=== PATIENT | male | born 1975 | race Caucasian/White ===

== ENCOUNTER 2024-12-26 16:51 | Observation (INO) ==
[2024-12-26] MEDS ORDERED: IOPAMIDOL 100 ML BOTTLE IV ONE (16:52)
[2024-12-26 17:30] LABS: Basophils # (Auto) 0.02 K/mcL (0.00-0.30); Basophils % (Auto) 0.3 % (0.0-2.0); Eosinophils % (Auto) 2.8 % (0.0-7.0); Hematocrit 42.6 % (40.1-51.0); Hemoglobin 14.8 g/dL (13.7-17.5); Lymphocytes # (Auto) 2.21 K/mcL (1.50-4.80); Lymphocytes % (Auto) 31.3 % (15.5-49.0); Mean Corpuscular HGB Conc 34.7 g/dL (31.0-36.0); Mean Platelet Volume 8.8 fL (8.8-12.5); Monocytes # (Auto) 0.41 K/mcL (0.10-0.90); Monocytes % (Auto) 5.8 % (1.0-12.0); Neutrophils % (Auto) 59.7 % (38.0-78.0); Platelet Count 210 K/mcL (140-440); RBC 4.68 M/mcL (4.63-6.08); Red Cell Distribution Width 11.5 % (11.5-14.5); WBC 7.1 K/mcL (4.5-11.0)
[2024-12-26 18:00] LABS: ALT/SGPT 48 U/L (<40); AST/SGOT 30 U/L (<40); Albumin 4.5 gm/dL (3.2-5.2); Albumin/Globulin Ratio 1.6 (1.0-2.3); Alkaline Phosphatase 60 U/L (39-117); Bilirubin,Total 0.2 mg/dL (0.1-1.0); Blood Urea Nitrogen 17 mg/dL (6-20); Calcium 9.7 mg/dL (8.6-10.4); Carbon Dioxide 23 mmol/L (22-30); Chloride 101 mmol/L (96-108); Globulin 2.9 gm/dL (2.2-3.7); Glomerular Filtration Rate 103; Glucose 103 mg/dL (70-105); Potassium 3.9 mmol/L (3.3-5.1); Sodium 139 mmol/L (133-145)
[2024-12-26] MEDS: ASPIRIN 81 MG TAB.CHEW CHEWED ONE (18:22)
[2024-12-26] MEDS: CLOPIDOGREL 300 MG TABLET PO ONE (18:23)
[2024-12-26] MEDS: OMEPRAZOLE 20 MG CAPSULE PO ONE (18:52)
[2024-12-26 20:07] LABS: Appearance,Urine Clear (Clear); Bilirubin,Urine Negative (Negative); Color,Urine Yellow; Glucose,Urine (UA) Negative (Negative); Ketones,Urine Negative (Negative); Leukocyte Esterase,Urine Negative /uL (Negative); Nitrate,Urine Negative (Negative); Protein,Urine Negative (Negative); Specific Gravity,Urine 1.015 (1.000-1.035); Urine Blood Negative ery/mcL (Negative); Urine RBC 0 /hpf (0-3); Urine Squamous Epithelial Cell 0 /hpf (0-4); Urine WBC 0 /hpf (0-4); Urobilinogen,Urine Normal
[2024-12-26 22:05] LABS: Thyroid Stimulating Hormone 1.23 uIU/mL (0.27-5.01)
[2024-12-26] MEDS ORDERED: POLYETHYLENE GLYCOL 3350 17 GM PACKET PO PRN (22:22)
[2024-12-26] MEDS ORDERED: SENNOSIDES 1 TABLET PO PRN (22:22)
[2024-12-26] MEDS ORDERED: MAG HYDROX/AL HYDROX/SIMETH 30 ML ORAL.SUSP PO PRN (22:22)
[2024-12-26] MEDS ORDERED: BUTALB/ACETAMINOPHEN/CAFFEINE 1 TABLET PO PRN (22:22)
[2024-12-26] MEDS ORDERED: ONDANSETRON 4 MG/2 ML VIAL IV PRN (22:22)
[2024-12-26] MEDS ORDERED: IBUPROFEN 600 MG TABLET PO PRN (22:22)
[2024-12-26 22:34] LABS: Estimated Average Glucose(eAG) 108 mg/dL; Hemoglobin A1C 5.4 % Hgb (4.0-6.0)
[2024-12-26 22:40] LABS: HDL Cholesterol 33 mg/dL (>40); Non-HDL Cholesterol 207 mg/dL (<130); Triglycerides 426 mg/dL (<150)
[2024-12-26] MEDS: LACTATED RINGERS 1,000 ML IV SCH (22:55)
[2024-12-26] MEDS: 0.9 % SODIUM CHLORIDE 10 ML SYRINGE IV SCH (22:56)
[2024-12-26] MEDS: ACETAMINOPHEN 1,000 MG/100 ML BAG IV ONE (22:56)
[2024-12-26] MEDS: MELATONIN 3 MG TABLET PO SCH (22:57)
[2024-12-27 05:54] LABS: Basophils # (Auto) 0.03 K/mcL (0.00-0.30); Basophils % (Auto) 0.5 % (0.0-2.0); Eosinophils % (Auto) 3.3 % (0.0-7.0); Hematocrit 40.2 % (40.1-51.0); Lymphocytes # (Auto) 2.01 K/mcL (1.50-4.80); Lymphocytes % (Auto) 33.1 % (15.5-49.0); Mean Cell Volume 92.2 fL (80.0-100.0); Mean Corpuscular HGB Conc 34.8 g/dL (31.0-36.0); Mean Platelet Volume 8.9 fL (8.8-12.5); Monocytes # (Auto) 0.45 K/mcL (0.10-0.90); Monocytes % (Auto) 7.4 % (1.0-12.0); Neutrophils % (Auto) 55.7 % (38.0-78.0); Platelet Count 193 K/mcL (140-440); RBC 4.36 M/mcL (4.63-6.08); Red Cell Distribution Width 11.7 % (11.5-14.5); WBC 6.1 K/mcL (4.5-11.0)
[2024-12-27 06:17] LABS: Blood Urea Nitrogen 14 mg/dL (6-20); Calcium 8.8 mg/dL (8.6-10.4); Carbon Dioxide 23 mmol/L (22-30); Chloride 103 mmol/L (96-108); Glomerular Filtration Rate 109; Glucose 95 mg/dL (70-105); Sodium 138 mmol/L (133-145)
[2024-12-27] MEDS: ACETAMINOPHEN 325 MG TABLET PO PRN (07:30)
[2024-12-27] MEDS: ACETAMINOPHEN 325 MG TABLET PO ONE (09:02)
[2024-12-27] MEDS: ASPIRIN 81 MG TAB.CHEW CHEWED SCH (09:42)
[2024-12-27] MEDS: CLOPIDOGREL 75 MG TABLET PO SCH (09:43)
[2024-12-27] MEDS: ENOXAPARIN 40 MG/0.4 ML SYRINGE SQ SCH (09:43)
[2024-12-27 11:14] VITALS: TEMP 97; O2SAT 97
[2024-12-27] MEDS ORDERED: ATORVASTATIN 40 MG TABLET PO SCH (21:00)
== END 2024-12-27 11:20 | disposition left against medical advice (07) ==
LOC: ED 16:51 → MEDSUR 16:51
PROVIDERS: ADMIT Student in an Organized Health Care Education/Training Program; ATTEND Student in an Organized Health Care Education/Training Program